=== PATIENT | female | born 1980 | race African-American/Black ===

== ENCOUNTER 2018-02-27 04:21 | Emergency (ER) | payer OTHER ==
[~2018-02-27] VITALS: Ht 157.5 cm; Wt 90.7 kg
[2018-02-27 04:24] VITALS: BP 156/103
[2018-02-27] MEDS ORDERED: HYDROcodone/APAP 10/325 MG 1 TAB TAB PO STA (05:06)
[2018-02-27] MEDS ORDERED: SULFAMETH/TRIMETH DS 800/160MG 1 TAB PO ONE (05:10)
[2018-02-27] MEDS ORDERED: LORazepam 1 MG TAB PO ONE (05:10)
[2018-02-27] MEDS ORDERED: SULFAMETH/TRIMETH DS 800/160MG 1 TAB ONE (05:28)
[2018-02-27 05:40] VITALS: BP 145/98
== END 2018-02-27 05:40 | disposition home or self-care (01) ==
LOC: MED 04:21
DX: L73.8 Other specified follicular disorders (principal); F41.9 Anxiety disorder, unspecified; I10 Essential (primary) hypertension; Z91.010 Allergy to peanuts
CPT/HCPCS: 99284